=== PATIENT | female | born 1940 | race African-American/Black ===

== ENCOUNTER 2018-10-08 12:28 | Emergency (ER) | payer OTHER, BC ==
--- NOTE | 2018-10-08 12:41 | PDOC ---
History of Present Illness - General Chief Complaint: Pain, Acute Stated Complaint: right hip pain Time Seen by Provider: 10/08/18 12:41 History Source: Patient Exam Limitations: No Limitations - History of Present Illness Initial Comments: 10/08/18 13:03 This is a 78 year old female with a history of HLD, DMII, sciatica, who presents with sharp, right low back pain radiating down right posterior leg that start this morning when patient was getting out out bed. She tried heating pad ,warm shower, 2 Advil, with no relief. She is now unable to ambulate due to the pain. She denies any associated injury, lifting, twisting. Denies fever, chills, abdominal pain, numbness, tingling, urinary incontinence or associated symptoms. She has a history of sciatica, which patient states is the same presentation as previous sciatica flare. Past History - Past Medical History Allergies/Adverse Reactions: Allergies Allergy/AdvReac Type Severity Reaction Status Date / Time No Known Drug Allergies Allergy Verified 10/08/18 12:35 Home Medications: Ambulatory Orders Aspirin [ASA -] 81 mg PO HS 07/05/14 Ezetimibe/Simvastatin [Vytorin 10-20 mg Tablet] 1 tab PO HS 07/05/14 metFORMIN HCL [Glucophage -] 500 mg PO DAILY 07/05/14 Latanoprost 0.005% Eye Drops [Xalatan 0.005% Eye Drops -] 1 drop OS HS 07/26/16 Cyclobenzaprine HCl [Flexeril 10 mg] 10 mg PO TID PRN 5 Days #15 tablet Diclofenac Sodium [Voltaren-Xr] 100 mg PO BID 5 Days #10 tab.er.24h 10/08/18 Oxycodone HCl/Acetaminophen [Percocet 5-325 mg Tablet] 1 - 2 tab PO Q4H PRN #12 tablet MDD 4 10/08/18 Anemia: Yes (MANY YEARS AGO) Asthma: No Cancer: No Cardiac Disorders: No CVA: No COPD: No CHF: No Dementia: No Diabetes: Yes GI Disorders: Yes (DIVERTICULITIS) Disorders: No HTN: No Hypercholesterolemia: Yes Liver Disease: No Seizures: No Thyroid Disease: No - Surgical History Abdominal Surgery: Yes Appendectomy: No Cardiac Surgery: No Cholecystectomy: Yes Lung Surgery: No Neurologic Surgery: No Orthopedic Surgery: No - Suicide/Smoking/Psychosocial Hx Smoking Status: No Smoking History: Never smoked Have you smoked in the past 12 months: No Number of Cigarettes Smoked Daily: 0 Hx Alcohol Use: No Drug/Substance Use Hx: No Substance Use Type: None Review of Systems - Review of Systems Able to Perform ROS?: Yes Is the patient limited [place] proficient: No Constitutional: No: Chills, Diaphoresis, Fever HEENTM: No: Blurred Vision, Double Vision Respiratory: No: Cough, Orthopnea, Shortness of Breath, SOB with Exertion Cardiac (ROS): No: Chest Pain, Edema, Irregular Heart Rate ABD/GI: No: Abdominal Distended : No: Burning, Dysuria, Incontinence Musculoskeletal: Yes: Back Pain (low back pain with spasm), Muscle Pain, Muscle Weakness, Other Neurological: Yes: Unsteady Gait, Other (inability to ambulate due to pain). No : Headache, Numbness, Paresthesia, Tingling *Physical Exam - Physical Exam General Appearance: Yes: Obese Respiratory/Chest: positive: Lungs Clear, Normal Breath Sounds Cardiovascular: positive: Regular Rhythm, Regular Rate, S1, S2 Gastrointestinal/Abdominal: positive: Normal Bowel Sounds. negative: Tender Musculoskeletal: positive: Decreased Range of Motion, Muscle Spasm (right low back tighness with spasm on palpation; ), Other. negative: Vertebral Tenderness Extremity: positive: Normal Inspection, Normal Range of Motion, Pelvis Stable, Other (hip rotation/flexion/extension intact) Neurologic: positive: Fully Oriented, Normal Mood/Affect, Motor Strength 5/5. negative: Numbness, Sensory Deficit Medical Decision Making - Medical Decision Making 10/08/18 13:14 This is a 78 year old female with a history of DMII, HLD, sciatica, who presents with right low back pain that radiates to right buttock, with intermittent spasms. Will treat for sciatica with tordol 60mg IM x1 and visteril 50mg po x1. Re-eval for ability to ambulate after medication. 10/08/18 14:10 #sciatica right side: -pain improved with tordol and visteril; 1x percocet -able to ambulate -will prescribe flexeril and tordol as outpatient -follow up with primary -referral to spine surgeon 10/08/18 14:55 *DC/Admit/Observation/Transfer Diagnosis at time of Disposition: Sciatica Qualifiers: Laterality: right Qualified Code(s): M54.31 - Sciatica, right side - Discharge Dispostion Disposition: HOME Condition at time of disposition: Improved Decision to Admit order: No - Referrals - Patient Instructions Printed Discharge Instructions: DI for Back Pain With Sciatica Additional Instructions: Mae Carr, you have been diagnosed with sciatica, we have prescribed you with a muscle relaxer, an anti inflammatory and a pain killer as needed. Please follow up with your primary physician in a couple days. We will also give you information to a product info specialist. If you experience any worsening of symptoms, in ability to ambulate, please return to the emergency room. - Post Discharge Activity
[2018-10-08 12:50] VITALS: BP 115/67; PULSE 69; TEMP 98.2; BMI 39.1
[2018-10-08] MEDS ORDERED: KETOROLAC TROMETHAMINE 60 MG/2 ML VIAL IVPUSH ONE (12:58)
[2018-10-08] MEDS ORDERED: hydrOXYzine PAMOATE 50 MG CAPSULE (FP) PO ONE (12:58)
[2018-10-08] MEDS ORDERED: KETOROLAC TROMETHAMINE 60 MG/2 ML VIAL ONE (13:10)
[2018-10-08] MEDS ORDERED: hydrOXYzine PAMOATE 25 MG CAPSULE (FP) PO ONE (13:10)
[2018-10-08] MEDS: KETOROLAC TROMETHAMINE 60 MG/2 ML VIAL IM ONE ×2 (13:21→13:22)
--- NOTE | 2018-10-08 16:36 | PDOC ---
Attending Attestation - Resident Resident Name: Jes Allison - ED Attending Attestation I have performed the following: I have examined & evaluated the patient, The case was reviewed & discussed with the resident, I agree w/resident's findings & plan, Exceptions are as noted - HPI HPI: 10/08/18 16:33 Patient complains of aggravation of her sciatica with pain in the right buttock and posterior thigh. Began this morning. But she had been having some mild pain for approximately 1 week. No acute injury. No numbness tingling or weakness below the knee. No bowel or bladder incontinence or retention. No saddle anesthesia. - Physicial Exam PE: 10/08/18 16:34 Physical exam with normal vital signs. LS spine without point tenderness or deformity. No sign of inflammation No deformity or tenderness of the pelvis with full range of motion of both hips without limitation. Straight leg raising negative. No distal sensory or motor deficits demonstrable. - Medical Decision Making 10/08/18 16:35 Assessment: Flareup of sciatica. Plan: Analgesics and muscle relaxants administered. Patient much improved. Much more mobile, flexible, and ambulatory. Discharged in the company of her daughter to continue medication and follow-up with Back Specialist if no improvement, or return to ER if symptoms worsen or additional symptoms develop.
== END 2018-10-08 15:10 | disposition home or self-care (01) ==
LOC: FER 12:28
PROC: 3E0233Z Introduction of Anti-inflammatory into Muscle, Percutaneous Approach (ICD-10-PCS; principal; 2018-10-08)
DX: M54.31 Sciatica, right side (principal); E78.5 Hyperlipidemia, unspecified; E11.9 Type 2 diabetes mellitus without complications
CPT/HCPCS: 99282-25

== ENCOUNTER 2020-08-03 21:39 | Emergency (ER) | payer OTHER, BC ==
[2020-08-03 21:48] VITALS: BP 152/80; PULSE 90; TEMP 98.1; BMI 39.1
[2020-08-03] MEDS ORDERED: ACETAMINOPHEN 500 MG TABLET (FP) PO ONE (21:50)
[2020-08-03] MEDS ORDERED: ACETAMINOPHEN 500 MG TABLET (FP) ONE (21:51)
--- NOTE | 2020-08-03 21:52 | PDOC ---
History of Present Illness - General Chief Complaint: Pain, Acute Stated Complaint: pain to right wrist,forearm Time Seen by Provider: 08/03/20 21:42 History Source: Patient Exam Limitations: No Limitations - History of Present Illness Initial Comments: 08/03/20 22:25 This is an 79-year-old female who comes in complaining of acute onset to her right wrist and forearm. Patient says she was sitting in her chair when it suddenly developed pain. Patient denies any trauma or injury. Patient denies history of similar pain in the past. Allergies: as per nursing notes Past Medical History: none Social history: Lives with family. No smoking. No alcohol. No illicit drugs. Surgical history: None General: No fevers or chills, no weakness, no weight loss HEENT: No change in vision. No sore throat,. No ear pain CardioVascular: no chest discomfort. No shortness of breath Respiratory:No cough, or wheezing. Gastrointestinal: no nausea, vomiting, diarrhea or constipation, No rectal bleeding Genitourinary: No dysuria, hematuria, or frequency Musculoskeletal: No joint or muscle pain or swelling, right wrist and forearm pain Neurologic: No headache, vertigo, dizziness or loss of consciousness Psychiatric: nor depression Skin: No rashes or easy bruising Endocrine: no increased thirst or abnormal weight change Allergic: no skin or latex allergy All other systems reviewed and normal GENERAL: The patient is awake, alert, and fully oriented, in no acute distress. HEENT:Head is normal with no signs of trauma. Eyes: Pupils equal, round and reactive to light, Ears, and Throat are normal. Neck is supple. No Lymphadenopathy. EXTREMITIES:atraumatic, right wrist decreased range of motion secondary to pain neurovascular intact. Pain is reproduced on palpation however no swelling ecchymosis deformity or any increase in warmth or erythema. NEUROLOGICAL: Normal speech, normal gait. PSYCH: Normal mood, normal affect. SKIN: Warm, Dry, normal turgor, no rashes or lesions noted. X-ray no acute pathology Assessment and plan: This is an 79-year-old female with right wrist pain. Patient given wrist splint Tylenol and a sling. Patient given a follow-up with the orthopedist. Past History - Medical History Allergies/Adverse Reactions: Allergies Allergy/AdvReac Type Severity Reaction Status Date / Time No Known Drug Allergies Allergy Verified 10/08/18 12:35 Home Medications: Ambulatory Orders Aspirin [ASA -] 81 mg PO HS 07/05/14 Ezetimibe/Simvastatin [Vytorin 10-20 mg Tablet] 1 tab PO HS 07/05/14 metFORMIN HCL [Glucophage -] 500 mg PO DAILY 07/05/14 Latanoprost 0.005% Eye Drops [Xalatan 0.005% Eye Drops -] 1 drop OS HS 07/26/16 Anemia: Yes (MANY YEARS AGO) Asthma: No Cancer: No Cardiac Disorders: No CVA: No COPD: No CHF: No Dementia: No Diabetes: Yes GI Disorders: Yes (DIVERTICULITIS) Disorders: No HTN: No Hypercholesterolemia: Yes Liver Disease: No Seizures: No Thyroid Disease: No - Surgical History Abdominal Surgery: Yes (TUBAL LIGATION) Appendectomy: No Cardiac Surgery: No Cholecystectomy: Yes Lung Surgery: No Neurologic Surgery: No Orthopedic Surgery: No - Psycho-Social/Smoking History Smoking Status: No Smoking History: Never smoked Have you smoked in the past 12 months: No Number of Cigarettes Smoked Daily: 0 Discharge - Discharge Information Problems reviewed: Yes Clinical Impression/Diagnosis: Right wrist pain Condition: Stable Disposition: HOME - Admission No - Follow up/Referral Referrals: Cristino Herring MD [Primary Care Provider] - Dominic Coppola MD [Staff Physician] - - Patient Discharge Instructions Additional Instructions: For the pain continue to take Tylenol or Aleve. You can alternate them every 3- 4 hours if needed. Wear the splint and a sling for additional comfort. Your x-rays were negative for any acute problems. Follow-up with the orthopedist I gave you a referral to Dr. Roman however you can follow-up with any orthopedist that you want. Return to the emergency department immediately with ANY new, persistent or worsening symptoms. Continue any medications as previously prescribed by your physician. You should follow up with your primary doctor as soon as possible regarding today's emergency department visit. . Please make sure your doctor reviews the results of your emergency evaluation. Thank you for coming to the Emergency Department today for your care. It was a pleasure to see you today. Please note that your evaluation is INCOMPLETE until you follow-up with your doctor. - Post Discharge Activity
== END 2020-08-03 22:37 | disposition home or self-care (01) ==
LOC: FER 21:39
DX: M25.531 Pain in right wrist (principal)
CPT/HCPCS: 73110-TC-RT-FY; 73130-TC-RT-FY; 99283-25

== ENCOUNTER 2021-10-09 04:42 | Day surgery (SDC) | payer OTHER, BC ==
[2021-10-05 12:40] VITALS: BMI 42.6
[2021-10-09 10:32] VITALS: TEMP 97.5
[2021-10-09 10:42] VITALS: PULSE 69
[2021-10-09 11:17] VITALS: BP 115/51
== END 2021-10-09 11:19 | disposition home or self-care (01) ==
LOC: JASU-ENDO 04:42
PROVIDERS: ATTEND Internal Medicine Gastroenterology
PROC: 0DBL8ZX Excision of Transverse Colon, Via Natural or Artificial Opening Endoscopic, Diagnostic (ICD-10-PCS; principal; 2021-10-09 10:00)
DX: Z12.11 Encounter for screening for malignant neoplasm of colon (principal); D12.3 Benign neoplasm of transverse colon; K57.30 Diverticulosis of large intestine without perforation or abscess without bleeding; K64.8 Other hemorrhoids; Z86.010 Personal history of colon polyps; Z80.0 Family history of malignant neoplasm of digestive organs; E11.9 Type 2 diabetes mellitus without complications; I10 Essential (primary) hypertension; Z79.84 Long term (current) use of oral hypoglycemic drugs
CPT/HCPCS: 82962; 88305-TC

== ENCOUNTER 2021-11-23 12:44 | Emergency (ER) | payer OTHER, BC ==
[2021-11-23] MEDS ORDERED: DEXAMETHASONE SOD PHOSPHATE 10 MG/1 ML VIAL IM ONE (13:52)
[2021-11-23] MEDS ORDERED: diazePAM 5 MG TABLET PO ONE (13:52)
[2021-11-23] MEDS ORDERED: LIDOCAINE 5% TOPICAL PATCH TP ONE (13:52)
[2021-11-23 13:59] VITALS: BP 126/71; PULSE 74; TEMP 98.2; BMI 40.3
[2021-11-23] MEDS ORDERED: DEXAMETHASONE SOD PHOSPHATE 10 MG/1 ML VIAL ONE (14:00)
[2021-11-23] MEDS ORDERED: diazePAM 5 MG TABLET ONE (14:00)
[2021-11-23] MEDS ORDERED: LIDOCAINE 5% TOPICAL PATCH ONE (15:37)
[2021-11-23] MEDS ORDERED: LIDOCAINE PATCH REMOVAL MC SCH (22:00)
== END 2021-11-23 16:48 | disposition home or self-care (01) ==
LOC: FER 12:44
PROC: 3E023GC Introduction of Other Therapeutic Substance into Muscle, Percutaneous Approach (ICD-10-PCS; principal; 2021-11-23)
DX: M54.31 Sciatica, right side (principal)
CPT/HCPCS: 72100-TC-FY; 81003; 87086; 99284-25; J1100

== ENCOUNTER 2022-04-01 13:47 | Emergency (ER) | payer OTHER, BC ==
[2022-04-01 13:54] VITALS: BMI 35.5
[2022-04-01] MEDS ORDERED: IBUPROFEN 400 MG TABLET (FP) PO ONE ×2 (14:05→14:08)
[2022-04-01 16:03] VITALS: BP 110/66; PULSE 77; TEMP 98
== END 2022-04-01 16:03 | disposition home or self-care (01) ==
LOC: FER 13:47
DX: M79.661 Pain in right lower leg (principal)
CPT/HCPCS: 93971-TC; 99283-25

== ENCOUNTER 2023-08-13 11:06 | Emergency (ER) | payer OTHER, BC ==
[2023-08-13 11:16] VITALS: BP 133/61; PULSE 65; RESP 18; TEMP 98.5; BMI 41.4
[2023-08-13 11:47] LABS: HEMATOCRIT 38.8 % (32.4-45.2); HEMOGLOBIN 12.9 G/dL (10.7-15.3); MCHC 33.2 g/dl (32.0-36.0); MEAN CELL VOLUME 93.2 fl (80-96); MEAN PLT VOLUME 9.5 fl (7.5-11.1); PLATELET COUNT 212.7 10^3/uL (134-434); RBC 4.16 10^6/uL (3.60-5.2); RDW 14.6 % (11.6-15.6); WHITE BLOOD COUNT 6.8 10^3/uL (4.0-10.8)
[2023-08-13 11:49] LABS: PLATELET ESTIMATE ADEQUATE
[2023-08-13 11:58] LABS: CALCIUM 9.1 mg/dl (8.5-10.1); POTASSIUM 4.4 mmol/L (3.5-5.1); SGOT/AST 25.2 U/L (15-37); SGPT/ALT 28.1 U/L (7-52); TOT PROT 6.6 g/dl (6.4-8.2)
[2023-08-13 12:38] LABS: BILIRUBIN,TOTAL 0.7 mg/dL (0.2-1)
[2023-08-13] MEDS ORDERED: ACETAMINOPHEN 1000 MG/100 ML BAG IVPB ONE (13:14)
[2023-08-13] MEDS ORDERED: ACETAMINOPHEN INJECTION 100 ML IVPB ONE (13:24)
== END 2023-08-13 15:09 | disposition home or self-care (01) ==
LOC: FER 11:06
PROC: 3E033NZ Introduction of Analgesics, Hypnotics, Sedatives into Peripheral Vein, Percutaneous Approach (ICD-10-PCS; principal; 2023-08-13)
DX: R42 Dizziness and giddiness (principal); H53.2 Diplopia
CPT/HCPCS: 36415; 70450-TC; 71046-TC-FY; 80053; 81003; 82550; 82553; 84484; 85027; 87086; 93005; 99285-25

== ENCOUNTER 2024-08-09 20:50 | Emergency (ER) | payer OTHER, BC ==
[2024-08-09] MEDS ORDERED: predniSONE 20 MG TABLET (UD) ONE (21:18)
[2024-08-09] MEDS ORDERED: LIDOCAINE 5% TOPICAL PATCH ONE (21:19)
[2024-08-09] MEDS: LIDOCAINE 5% TOPICAL PATCH TP ONE (21:25)
[2024-08-09] MEDS: predniSONE 20 MG TABLET (UD) PO ONE (21:25)
[2024-08-09] MEDS ORDERED: KETOROLAC TROMETHAMINE 60 MG/2 ML VIAL ONE (21:40)
[2024-08-09] MEDS: KETOROLAC TROMETHAMINE 60 MG/2 ML VIAL IM ONE (21:40)
[2024-08-09] MEDS: METHOCARBAMOL 500 MG TABLET PO ONE (21:40)
[2024-08-09] MEDS ORDERED: METHOCARBAMOL 500 MG TABLET ONE (21:40)
[2024-08-09 21:45] VITALS: BP 125/51; PULSE 73; RESP 18; TEMP 98.1; BMI 41.3
[2024-08-09] MEDS ORDERED: LIDOCAINE PATCH REMOVAL MC SCH (22:00)
[2024-08-09 23:28] LABS: ALBUMIN 4.1 g/dl (3.4-5.0); BILIRUBIN,TOTAL 0.4 mg/dl (0.2-1); CALCIUM 9.5 mg/dl (8.5-10.1); CREATININE 1.1 mg/dl (0.6-1.3); POTASSIUM 4.3 mmol/L (3.5-5.1); TOT PROT 6.9 g/dl (6.4-8.2)
[2024-08-09] MEDS: SODIUM CHLORIDE 0.9% 500 ML INFUS.BAG IV ONE (23:28)
[2024-08-09] MEDS: POLYETHYLENE GLYCOL (HEALTHYLAX) 3350 17 GM PACKET PO ONE (23:28)
== END 2024-08-10 00:58 | disposition home or self-care (01) ==
LOC: SUPCPDRO 20:50 → FER 20:50
PROC: 3E0133Z Introduction of Anti-inflammatory into Subcutaneous Tissue, Percutaneous Approach (ICD-10-PCS; principal; 2024-08-09)
DX: M62.830 Muscle spasm of back (principal)
CPT/HCPCS: 36415; 80053; 82550; 99284-25